=== PATIENT | female | born 1930 | race Caucasian/White ===

== ENCOUNTER 2017-05-22 20:22 | Emergency (ER) | payer MEDICARE, OTHER ==
[~2017-05-22] VITALS: Ht 152.4 cm; Wt 68.0 kg
[~2017-05-22 20:22] MED LIST: ASPI81TA31 PO; BLOOD PRESSURE PILL PO; FOLIC ACID PO; IBAN150T PO; LIPITOR PO; NEXIUM PO; [UNRECOGNIZED DRUG - REMARK]
[2017-05-22] MEDS ORDERED: GUAIFENESIN/CODEINE 5 ML LIQUID UDC PO ONE (21:15)
[2017-05-22] MEDS ORDERED: ACETAMINOPHEN ES 500 MG TABLET PO ONE (21:15)
[2017-05-22 21:39] LABS: BASOPHILS # (AUTO) 0.1 K/uL (0.0-8.0); EOSINOPHILS # (AUTO) 0.1 K/uL (0.0-0.7); EOSINOPHILS % (AUTO) 3.6 % (0.0-7.0); HEMATOCRIT 26.3 % (31.2-41.9); HEMOGLOBIN 9.4 g/dL (10.9-14.3); LYMPHOCYTES # (AUTO) 0.5 K/uL (20.0-40.0); LYMPHOCYTES % (AUTO) 14.7 % (20.5-51.5); MEAN CORPUSCULAR HEMOGLOBIN 40.6 uug (24.7-32.8); MEAN CORPUSCULAR HGB CONC 36 g/dL (32.3-35.6); MEAN CORPUSCULAR VOLUME 114.3 fL (75.5-95.3); MONOCYTES # (AUTO) 0.3 K/uL (2.0-10.0); NEUTROPHILS # (AUTO) 2.3 K/uL (1.8-8.9); NEUTROPHILS % (AUTO) 70.7 % (38.5-71.5); PLATELET COUNT (AUTO) 193 K/uL (179-408); WHITE BLOOD COUNT (AUTO) 3.3 K/uL (3.8-11.8)
[2017-05-22 21:50] LABS: RED BLOOD CELL COUNT(AUTO) 2.31 MIL/uL (3.63-4.92)
[2017-05-22] MEDS ORDERED: ACETAMINOPHEN ES 500 MG TABLET ONE (21:54)
[2017-05-22] MEDS ORDERED: predniSONE 50 MG TABLET ONE (21:54)
[2017-05-22] MEDS ORDERED: GUAIFENESIN/CODEINE 5 ML LIQUID UDC ONE ×2 (21:54→21:56)
[2017-05-22] MEDS ORDERED: predniSONE 50 MG TABLET PO ONE (22:00)
[2017-05-22 22:08] LABS: ALANINE AMINOTRANSFERASE 17 U/L (14-59); ALKALINE PHOSPHATASE 51 U/L (50-136); ASPARTATE AMINOTRANSFERASE 20 U/L (15-37); BILIRUBIN,DIRECT 0.1 mg/dL (0.0-0.2); BILIRUBIN,TOTAL 0.3 mg/dL (0.2-1.0); CARBON DIOXIDE 26 mmol/L (21-32); CHLORIDE 92 mmol/L (98-107); GLUCOSE 110 mg/dL (74-106); POTASSIUM 4.4 mmol/L (3.5-5.1); TOTAL PROTEIN, SERUM 7.3 g/dL (6.4-8.2); UREA NITROGEN, BLOOD 17 mg/dL (7-18)
--- NOTE | 2017-05-22 22:22 | NUR ---
CLIENT HAS STOPPED COUGHING AFTER THE GUAFINESEN AND CODIENE ADMINISTRATION. SHE CONTINUES TO ASK ABOUT WHEN SHE CAN LEAVE. VITALS WNL, FAMILY AT THE BEDSIDE AND TEMPERATURE IS NORMOTHERMIC.
[2017-05-22 22:50] VITALS: BP 139/62
== END 2017-05-22 22:51 | disposition home or self-care (01) ==
LOC: ER 20:23
DX: J40 Bronchitis, not specified as acute or chronic (principal); D64.9 Anemia, unspecified; E87.1 Hypo-osmolality and hyponatremia; Z90.49 Acquired absence of other specified parts of digestive tract; Z79.82 Long term (current) use of aspirin; Z79.899 Other long term (current) drug therapy
CPT/HCPCS: 36415; 70030-TC; 71045; 85025; 87400; 93005; A4663; A9150; J7512